=== PATIENT | male | born 1995 | race Caucasian/White ===

== ENCOUNTER 2024-06-15 10:51 | Emergency (ER) | payer SELFPAY ==
[2024-06-15 11:01] VITALS: BP 140/98; RESP 20; TEMP 98.6; BMI 33.0
[2024-06-15 11:10] VITALS: PULSE 107
== END 2024-06-15 13:48 | disposition home or self-care (01) ==
LOC: JER 10:51
DX: R07.89 Other chest pain (principal); R00.2 Palpitations
CPT/HCPCS: 71046-TC-FY; 93005; 93010; 99284-25